=== PATIENT | female | born 1985 | race Two or more races ===

== ENCOUNTER 2023-12-31 14:00 | Inpatient (IN) | payer OTHER ==
[~2023-12-31] VITALS: Ht 152.4 cm; Wt 3.6 kg
[2024-01-12 14:10] VITALS: BP 101/70; BP 104/70
[2024-01-12] MEDS ORDERED: PRENATAL TABLE1 EAC4 PO (14:38)
[2024-01-12] MEDS ORDERED: MISOPROSTOL 25 MCG TABLET VAG ONE (14:45)
[2024-01-12] MEDS ORDERED: RINGERS SOLUTION,LACTATED 1,000 ML IV SCH (14:45)
[2024-01-12 15:39] LABS: HEMATOCRIT 36.3 % (36.0-45.00); HEMOGLOBIN 12.5 g/dL (12.0-15.00); MEAN CELL VOLUME 87.1 fL (80.00-100.00); MEAN CORPUSCULAR HGB CONC 34.5 g/dl (32.0-36.0); PLATELET COUNT 246 K/uL (150-450); RED BLOOD COUNT 4.17 M/uL (4.00-6.00); RED CELL DISTRIBUTION WIDTH 14.3 % (11.5-14.5)
[2024-01-12 15:56] LABS: INR < 0.93; PARTIAL THROMBOPLASTIN TIME 27.6 SECONDS (22.0-34.0); PROTHROMBIN TIME 9.7 SECONDS (9.0-11.5)
[2024-01-12 16:06] VITALS: BP 107/68
[2024-01-12 16:10] LABS: ALBUMIN 3.1 gm/dL (3.4-5.0); BILIRUBIN TOTAL 0.43 mg/dL (0.3-1.2); CALCIUM 9.3 mg/dL (8.5-10.1); CREATININE SERUM 0.64 mg/dL (0.55-1.02); GLOBULINA 3.6 G/DL (2.4-3.5); POTASSIUM 4.24 mEq/L (3.5-5.1); TOTAL PROTEIN 6.7 gm/dL (6.4-8.2)
[2024-01-12 20:30] VITALS: BP 96/60
[2024-01-12 23:53] VITALS: BP 105/58
[2024-01-13 03:44] VITALS: BP 100/62
[2024-01-13 07:39] VITALS: BP 106/65
[2024-01-13] MEDS ORDERED: OXYTOCIN 500 ML IV ONE (08:00)
[2024-01-13 11:42] VITALS: BP 107/69
[2024-01-13 15:30] VITALS: BP 120/69
[2024-01-13 20:23] VITALS: BP 111/69
[2024-01-13] MEDS ORDERED: RINGERS SOLUTION,LACTATED 1,000 ML IV SCH (21:00)
[2024-01-13] MEDS ORDERED: OXYTOCIN 1,000 ML IV ONE (21:00)
[2024-01-13] MEDS ORDERED: MORPHINE SULFATE 4 MG/ML CARTRIDGE IV PRN (21:00)
[2024-01-13] MEDS ORDERED: OXYTOCIN 10 UNITS/ML VIAL IV ONE (22:45)
[2024-01-13] MEDS ORDERED: ERYTHROMYCIN BASE OPHT 1GM EACH TUBE OP ONE (22:45)
[2024-01-14] MEDS ORDERED: ACETAMINOPHEN 500 MG GEL..CAP PO SCH
[2024-01-14] MEDS ORDERED: KETOROLAC TROMETHAMINE 30 MG VIAL IV SCH
[2024-01-14] MEDS ORDERED: ONDANSETRON HCL 2 MG/ML VIAL IV SCH
[2024-01-14] MEDS ORDERED: SIMETHICONE 125 MG CAPSULE PO SCH (01:00)
[2024-01-14] MEDS ORDERED: GABAPENTIN 300 MG CAPSULE PO SCH (01:00)
[2024-01-14 05:04] LABS: HEMATOCRIT 31.9 % (36.0-45.00); HEMOGLOBIN 10.4 g/dL (12.0-15.00); MEAN CELL VOLUME 88.8 fL (80.00-100.00); MEAN CORPUSCULAR HEMOGLOBIN 28.8 pg (27.00-32.0); MEAN CORPUSCULAR HGB CONC 32.5 g/dl (32.0-36.0); PLATELET COUNT 222 K/uL (150-450); RED BLOOD COUNT 3.59 M/uL (4.00-6.00); RED CELL DISTRIBUTION WIDTH 13.8 % (11.5-14.5)
[2024-01-14 06:12] VITALS: BP 122/77
[2024-01-14] MEDS ORDERED: KETOROLAC TROMETHAMINE 10 MG TABLET PO SCH (08:00)
[2024-01-14] MEDS ORDERED: OxyCODONE HCL 5 MG TABLET (ROXICODONE) PO PRN (08:00)
[2024-01-14 08:45] VITALS: BP 121/64
[2024-01-14] MEDS ORDERED: DOCUSATE SODIUM 100MG CAP PO SCH (09:00)
[2024-01-14 16:51] VITALS: BP 120/76
[2024-01-15 01:42] VITALS: BP 100/64
[2024-01-15 09:37] VITALS: BP 107/69
== END 2024-01-15 16:47 | disposition home or self-care (01) | DRG 788 ==
LOC: OB/GYN 01-09 14:00 → LDR 01-12 13:12 → OB/GYN 01-14 03:47
PROVIDERS: Obstetrics & Gynecology; ADMIT Obstetrics & Gynecology Maternal & Fetal Medicine; ATTEND Obstetrics & Gynecology Maternal & Fetal Medicine
PROC: 10D00Z1 Extraction of Products of Conception, Low, Open Approach (ICD-10-PCS; principal; 2024-01-12)
PROC: 4A1HXCZ Monitoring of Products of Conception, Cardiac Rate, External Approach (ICD-10-PCS; 2024-01-12)
PROC: 3E033VJ Introduction of Other Hormone into Peripheral Vein, Percutaneous Approach (ICD-10-PCS; 2024-01-12)
PROC: 3E0P7VZ Introduction of Hormone into Female Reproductive, Via Natural or Artificial Opening (ICD-10-PCS; 2024-01-12)
DX: O82 Encounter for cesarean delivery without indication (principal); O62.1 Secondary uterine inertia; Z3A.40 40 weeks gestation of pregnancy; Z37.0 Single live birth; Z20.822 Contact with and (suspected) exposure to COVID-19

== ENCOUNTER 2024-01-05 12:06 | Outpatient (CLI) | payer OTHER | END 2024-01-05 13:10 | disposition home or self-care (01) | LOC: NST 12:06 | PROVIDERS: ATTEND Obstetrics & Gynecology | DX: Z34.83 Encounter for supervision of other normal pregnancy, third trimester (principal) ==